=== PATIENT | male | born 1960 | race Caucasian/White ===

== ENCOUNTER 2016-09-20 14:25 | Emergency (ER) | payer OTHER ==
[2016-09-20] MEDS ORDERED: TDaP 0.5 ML VIAL IM.VACC ONE (15:10)
[2016-09-20] MEDS ORDERED: ONDANSETRON 4 MG VIAL ONE (15:36)
[2016-09-20] MEDS ORDERED: DILAUDID 1 MG/ML AMP ONE (15:37)
== END 2016-09-20 17:00 | disposition other institution (70) ==
LOC: ER 14:25
DX: S06.0X9A Concussion with loss of consciousness of unspecified duration, initial encounter (principal); S30.1XXA Contusion of abdominal wall, initial encounter; S50.811A Abrasion of right forearm, initial encounter; S60.512A Abrasion of left hand, initial encounter; S60.511A Abrasion of right hand, initial encounter; S22.41XA Multiple fractures of ribs, right side, initial encounter for closed fracture; V85.4XXA Person injured while boarding or alighting from special construction vehicle, initial encounter; Y92.69 Other specified industrial and construction area as the place of occurrence of the external cause; Y99.9 Unspecified external cause status; S20.211A Contusion of right front wall of thorax, initial encounter; Z79.84 Long term (current) use of oral hypoglycemic drugs; Z79.82 Long term (current) use of aspirin; Z79.899 Other long term (current) drug therapy; F17.210 Nicotine dependence, cigarettes, uncomplicated; Z23 Encounter for immunization
CPT/HCPCS: 36415; 70450; 71010; 71260; 72125; 72170; 74177; 80053; 82565; 85025; 85610; 85730; 90471; 96361; 96374; 96375